=== PATIENT | female | born 1980 | race Caucasian/White ===

== ENCOUNTER 2017-07-11 22:27 | Emergency (ER) | payer SELFPAY ==
[2017-07-11 23:45] LABS: ABSOLUTE BASOPHILS # (AUTO) 0.1 10^3/uL (0.0-0.2); ABSOLUTE EOSINOPHILS # (AUTO) 0.1 10^3/uL (0.0-0.6); ABSOLUTE LYMPHOCYTES (AUTO) 1.4 10^3/uL (0.5-4.7); ABSOLUTE MONOCYTES (AUTO) 0.5 10^3/uL (0.1-1.4); ABSOLUTE NEUT (AUTO) 4.3 10^3/uL (1.7-8.2); BASOPHILS % (AUTO) 1.2 % (0-2); EOSINOPHILS % (AUTO) 0.8 % (0-6); HEMATOCRIT 35.3 % (36.0-47.0); LYMPHOCYTES % (AUTO) 22.6 % (13-45); MEAN CORPUSCULAR HEMOGLOBIN 31.6 pg (27.0-33.4); MEAN CORPUSCULAR HGB CONC 34.1 g/dL (32.0-36.0); MEAN CORPUSCULAR VOLUME 93 fl (80-97); MONOCYTES % (AUTO) 7.9 % (3-13); PLATELET COUNT 254 10^3/uL (150-450); RED BLOOD COUNT 3.81 10^6/uL (3.72-5.28); RED CELL DISTRIBUTION WIDTH 13.3 % (11.5-14.0); SEGMENTED NEUTROPHILS % (AUTO) 67.5 % (42-78); TOTAL CELLS COUNTED % (AUTO) 100 %; WHITE BLOOD COUNT 6.4 10^3/uL (4.0-10.5)
[2017-07-11] MEDS ORDERED: METOCLOPRAMIDE HCL ORAL SOLN 10 MG/10 ML UDCUP PO ONE (23:58)
[2017-07-11] MEDS ORDERED: LIDOCAINE 2% VISCOUS SOLN 20 ML UDCUP PO ONE (23:58)
[2017-07-11] MEDS ORDERED: MAG HYDROX/AL HYDROX/SIMETH SUSP 30 ML UDCUP PO ONE (23:58)
--- NOTE | 2017-07-12 00:01 | ER Document Report ---
ED General - General Chief Complaint: Abdominal Pain Stated Complaint: ABDOMINAL PAIN Time Seen by Provider: 07/11/17 23:52 Notes: Patient is a 37-year-old female presents with complaint of dental pain. No vomiting. She has had some diarrhea. No fevers. No blood in stool. Symptoms have been there for 4 days. Pain is all epigastric and also mainly left upper quadrant. She has very mild right upper quadrant pain. She is history of previous cholecystectomy. No previous history of other abdominal surgeries. No abnormal vaginal discharge or bleeding. No dysuria. No black stools. No bloody stools. TRAVEL OUTSIDE OF THE [place] IN LAST 30 DAYS: No - Related Data Allergies/Adverse Reactions: No Known Allergies Allergy (Verified 07/11/17 22:30) Past Medical History - Social History Smoking Status: Unknown if Ever Smoked Frequency of alcohol use: None Drug Abuse: None Family History: Reviewed & Not Pertinent Patient has suicidal ideation: No Patient has homicidal ideation: No Renal/ Medical History: Denies: Hx Peritoneal Dialysis - Immunizations Immunizations up to date: Yes Hx Diphtheria, Pertussis, Tetanus Vaccination: Yes Review of Systems - Review of Systems Notes: My Normal Review Basic REVIEW OF SYSTEMS: CONSTITUTIONAL : Denies fever, chills, or sweats. Denies recent illness. EENT: Denies eye, ear, throat, or mouth pain or symptoms. Denies nasal or sinus congestion. CARDIOVASCULAR: Denies chest pain. RESPIRATORY: Denies cough, cold, or chest congestion. Denies shortness of breath, difficulty breathing, or wheezing. GASTROINTESTINAL: Normal pain. Diarrhea. GENITOURINARY: Denies difficulty urinating, painful urination, burning, frequency, or blood in urine. FEMALE GENITOURINARY: Denies vaginal bleeding, abnormal or irregular periods. LMP: MUSCULOSKELETAL: Denies neck or back pain or joint pain or swelling. SKIN: Denies rash or skin lesions. NEUROLOGICAL: Denies altered mental status or loss of consciousness. Denies headache. Denies weakness or paralysis or loss of use of either side. Denies problems with gait or speech. Denies sensory or motor loss. ALL OTHER SYSTEMS REVIEWED AND NEGATIVE. Physical Exam - Vital signs Vitals: Temp Pulse BP Pulse Ox 98.2 F 79 132/85 H 100 07/11/17 22:38 07/11/17 22:38 07/11/17 22:38 07/11/17 22:38 - Notes Notes: General Appearance: Well nourished, alert, cooperative, no acute distress, mild obvious discomfort. Vitals: reviewed, See vital signs table. Eyes: PERRL, EOMI, Conjuctiva clear Mouth: No decreasd moisture Lungs: No wheezing, No rales, No rhonci, No accessory muscle use, good air exchange bilaterally. Heart: Normal rate, Regular rythm, No murmur, no rub Abdomen: Normal BS, soft, No rigidity, pain to palpation of her epigastric and left upper quadrant., No guarding, no rebound, Extremities: strength 5/5 in all extremities, good pulses in all extremities, no swelling or tenderness in the extremities, no edema. Skin: warm, dry, appropriate color, no rash Neuro: speech clear, oriented x 3, normal affect, responds appropriately to questions. Course - Re-evaluation Re-evalutation: 07/12/17 05:30 Patient has upper abdominal pain is mostly epigastric and left upper quadrant. Pain is worse with eating per her history. She is her had her gallbladder removed. Laboratory evaluation is unremarkable. She has had some associated diarrhea which she says she has had for 4 days but she is also only been taking in liquids and no solid foods. I informed her that she is taking a high-fiber diet and eat also very bland diet same time. I will place her on Pepcid being the location of pain is more left upper quadrant epigastric and is worse with eating. I will refer her to GI. I informed her return to ER for reevaluation if she still having pain or discomfort after 2-3 days. I encouraged her return to ER immediately if she has severe pain, vomiting, fevers, or black stools. Patient agrees with plan and will be discharged home. Dictation of this chart was performed using voice recognition software; therefore, there may be some unintended grammatical errors. - Vital Signs Vital signs: Temp Pulse Resp BP Pulse Ox 98.4 F 73 17 110/73 99 07/12/17 01:39 07/12/17 01:39 07/12/17 01:39 07/12/17 01:39 07/12/17 01:39 - Laboratory Result Diagrams: 07/11/17 23:30 07/11/17 23:30 Laboratory results interpreted by me: 07/11/17 07/11/17 23:30 23:30 Hct 35.3 L Est GFR (Non-Af Amer) 56 L AST 39 H ALT 57 H Discharge - Discharge Clinical Impression: Abdominal pain Qualifiers: Abdominal location: left upper quadrant Qualified Code(s): R10.12 - Left upper quadrant pain Diarrhea Qualifiers: Diarrhea type: unspecified type Qualified Code(s): R19.7 - Diarrhea, unspecified Condition: Good Disposition: HOME, SELF-CARE Additional Instructions: Please return to the ER immediately if you have worsening pain, fevers, vomiting , black stools, or feel that you are worsening. Please eat bland foods with fiber such as bread, rice, bananas. Please avoid fried foods, spicy foods, acidic foods. Please take the Pepcid as prescribed. please avoid excedrin and other NSAID medications. Please call The GI physician (Dr. Brand) for a follow up appointment. Return to the ER for reevaluation if you are not improving within 2 days. Prescriptions: Famotidine [Pepcid 40 mg Tablet] 40 mg PO DAILY #30 tablet Forms: Return to Work Referrals: ALEX BRAND MD [ACTIVE STAFF] - Follow up in 3-5 days
[2017-07-12 00:15] LABS: AMORPHOUS SEDIMENT,URINE TRACE /HPF; APPEARANCE,URINE CLEAR; BILIRUBIN,URINE NEGATIVE (NEGATIVE); COLOR,URINE YELLOW; GLUCOSE, URINE NEGATIVE (NEGATIVE); KETONES,URINE NEGATIVE (NEGATIVE); LEUKOCYTE ESTERASE,URINE NEGATIVE (NEGATIVE); NITRITE,URINE NEGATIVE (NEGATIVE); PROTEIN,URINE NEGATIVE (NEGATIVE); URINE SPECIFIC GRAVITY 1.013; UROBILINOGEN,URINE NEGATIVE mg/dL (<2.0)
[2017-07-12 00:40] LABS: ALANINE AMINOTRANSFERASE 57 U/L (9-52); ALBUMIN 4.8 g/dL (3.5-5.0); ALKALINE PHOSPHATASE 58 U/L (38-126); ANION GAP 11 (5-19); ASPARTATE AMINO TRANSFERASE 39 U/L (14-36); BILIRUBIN,DIRECT 0.4 mg/dL (0.0-0.4); BILIRUBIN,TOTAL 1.1 mg/dL (0.2-1.3); BLOOD UREA NITROGEN 12 mg/dL (7-20); CALCIUM 9.6 mg/dL (8.4-10.2); CARBON DIOXIDE 29 mmol/L (22-30); CHLORIDE 101 mmol/L (98-107); GLUCOSE 105 mg/dL (75-110); LIPASE 109.7 U/L (23-300); POTASSIUM 3.7 mmol/L (3.6-5.0); TOTAL PROTEIN 7.7 g/dL (6.3-8.2)
[2017-07-12 01:40] VITALS: BP 110/73
== END 2017-07-12 01:40 | disposition home or self-care (01) ==
LOC: ER 22:27
DX: R10.13 Epigastric pain (principal); R10.12 Left upper quadrant pain; R10.11 Right upper quadrant pain; Z90.49 Acquired absence of other specified parts of digestive tract; R19.7 Diarrhea, unspecified
CPT/HCPCS: 99284; 36415; 83690; 85025; 81025; 80053; 81001; J3490